=== PATIENT | female | born 1955 | race Caucasian/White ===

== ENCOUNTER → 2018-02-20 11:19 | Outpatient (CLI) | payer MEDICARE, SELFPAY ==
[2018-02-20 12:52] LABS: BUN 7 mg/dL (7-18); Creatinine, Serum 0.78 mg/dL (0.55-1.02); Glucose 285 mg/dL (74-106)
[2018-02-20 12:53] LABS: AST(SGOT) 14 U/L (15-37); Alanine Aminotransfer ALT/SGPT 18 U/L (13-56); Alkaline Phosphatase 137 U/L (45-117); Anion Gap 8 (5-15); Calcium,Total 9.9 mg/dL (8.5-10.1); Chloride 99 mmol/L (98-107); Cholesterol 146 mg/dL (200); EST Glomerular Filtration Rate 80 mL/min (>60); Est Glom Filt Rate - Afr Amer 97 mL/min (>60); Globulin 3.9 g/dL (2.2-4.2); High Density Lipoprotein 45 mg/dL; Potassium 4.1 mmol/L (3.5-5.1); Protein, Total 7.9 g/dL (6.4-8.2); Sodium Level 134 mmol/L (136-145); Triglycerides 207 mg/dL; Very Low Density Lipoprotein 41 mg/dL (5-40)
== END ==
PROVIDERS: Family Provider Family Medicine; PCP Family Medicine; Visit Provider Family Medicine
DX: E11.9 Type 2 diabetes mellitus without complications (principal); N39.0 Urinary tract infection, site not specified
CPT/HCPCS: 36415; 80053; 80061; 87077; 87086; 87088; 87186

== ENCOUNTER → 2018-08-27 12:19 | Outpatient (CLI) | payer MEDICARE, SELFPAY ==
[2018-08-27 14:39] LABS: Hematocrit 37.9 % (37-47); Hemoglobin 12.3 g/dl (12.0-15.0); Mean Corp Hgb Conc 32.5 g/gl (32-36); Mean Corpuscular Hgb 32.1 pg (27.0-32.0); Mean Platelet Vol. 9.6 fl (6.2-12.0); Platelet Count 221 K/mm3 (150-450); RBC Distribution Width CV 14.7 % (11.6-14.6); RBC Distribution Width SD 52.7 fl (35.1-43.9); Red Blood Count 3.83 M/mm3 (4.2-5.4); White Blood Count 4.7 K/mm3 (4.4-11.0)
[2018-08-27 14:40] LABS: Scan Indicated on CBC? Y/N NO
[2018-08-27 15:02] LABS: Cholesterol 134 mg/dL (200); High Density Lipoprotein 42 mg/dL; Triglycerides 192 mg/dL; Very Low Density Lipoprotein 38 mg/dL (5-40)
[2018-08-27 15:06] LABS: Hemoglobin A1c 5.8 % (4.2-6.3)
[2018-08-27 15:14] LABS: Microalbumin,Random Urine < 5.0 mg/L (NO RANGE EST.)
== END ==
PROVIDERS: Family Provider Family Medicine; PCP Family Medicine; Visit Provider Family Medicine
DX: E11.9 Type 2 diabetes mellitus without complications (principal); R30.0 Dysuria
CPT/HCPCS: 36415; 80061; 82043; 82570; 83036; 85027; 87086; 87088

== ENCOUNTER → 2019-01-28 12:12 | Outpatient (CLI) | payer MEDICARE, SELFPAY ==
[2019-01-28 14:37] LABS: Absolute Lymphocyte Count 0.65 X10^3/ul (0.83-4.51); Basophil# 0.02 X10^3/uL; Basophil% 0.4 % (0-1); Eosinophil# 0.13 X10^3/uL; Eosinophils% 2.5 % (0-5); Hematocrit 37.9 % (37-47); Hemoglobin 12.1 g/dl (12.0-15.0); Lymphocyte # 0.65 X10^3/ul (4.0); Lymphocyte % 12.4 % (19-41); Mean Corp Hgb Conc 31.9 g/gl (32-36); Mean Corpuscular Hgb 31.7 pg (27.0-32.0); Mean Corpuscular Volume 99.2 fL (81-99); Mean Platelet Vol. 9.5 fl (6.2-12.0); Monocyte# 0.41 X10^3/uL; Monocyte% 7.8 % (0-10); Neutrophil # 4.04 X10^3/uL (2.7-7.7); Neutrophil % 76.7 % (47-70); Platelet Count 260 K/mm3 (150-450); RBC Distribution Width CV 15.4 % (11.6-14.6); RBC Distribution Width SD 55.7 fl (35.1-43.9); Red Blood Count 3.82 M/mm3 (4.2-5.4); White Blood Count 5.3 K/mm3 (4.4-11.0)
[2019-01-28 14:42] LABS: Anion Gap 8 (5-15); BUN 13 mg/dL (7-18); BUN/Creat Ratio 14.1 RATIO (10-20); Calcium,Total 9.4 mg/dL (8.5-10.1); Chloride 104 mmol/L (98-107); Cholesterol 164 mg/dL (200); Creatinine, Serum 0.92 mg/dL (0.55-1.02); EST Glomerular Filtration Rate 66 mL/min (>60); Est Glom Filt Rate - Afr Amer 79 mL/min (>60); Glucose 122 mg/dL (74-106); High Density Lipoprotein 47 mg/dL; Potassium 4.2 mmol/L (3.5-5.1); Sodium Level 140 mmol/L (136-145); Triglycerides 160 mg/dL; Very Low Density Lipoprotein 32 mg/dL (5-40)
[2019-01-28 14:48] LABS: POSITIVE COUNT NO; POSITIVE DIFFERENTIAL NO; POSITIVE MORPHOLOGY NO
[2019-01-28 15:08] LABS: Microalbumin,Random Urine < 5.0 mg/L (NO RANGE EST.)
== END ==
PROVIDERS: Family Provider Family Medicine; PCP Family Medicine; Referring Provider Family Medicine; Visit Provider Family Medicine
DX: Z00.00 Encounter for general adult medical examination without abnormal findings (principal); E11.9 Type 2 diabetes mellitus without complications; R30.0 Dysuria
CPT/HCPCS: 36415; 80048; 80061; 82043; 82570; 85025; 87077; 87086; 87088

== ENCOUNTER → 2019-08-07 10:19 | Outpatient (CLI) | payer MEDICARE, SELFPAY ==
[2019-08-07 12:42] LABS: Hematocrit 37.1 % (37-47); Hemoglobin 12.2 g/dL (12.0-15.0); Mean Corp Hgb Conc 32.9 g/dL (32-36); Mean Corpuscular Hgb 32.3 pg (27.0-32.0); Mean Corpuscular Volume 98.1 fL (81-99); Mean Platelet Vol. 9.5 fl (6.2-12.0); Platelet Count 250 K/mm3 (150-450); RBC Distribution Width CV 14.9 % (11.6-14.6); RBC Distribution Width SD 53.8 fl (35.1-43.9); Red Blood Count 3.78 M/mm3 (4.2-5.4)
[2019-08-07 13:04] LABS: Anion Gap 7 (5-15); BUN 10 mg/dL (7-18); BUN/Creat Ratio 12.1 RATIO (10-20); Calcium,Total 9.9 mg/dL (8.5-10.1); Chloride 103 mmol/L (98-107); Cholesterol 143 mg/dL (200); Creatinine, Serum 0.83 mg/dL (0.55-1.02); EST Glomerular Filtration Rate 74 mL/min (>60); Est Glom Filt Rate - Afr Amer 90 mL/min (>60); Glucose 111 mg/dL (74-106); High Density Lipoprotein 44 mg/dL; Potassium 4.3 mmol/L (3.5-5.1); Sodium Level 137 mmol/L (136-145); Thyroid Stim Hormone (TSH) 4.22 uIU/mL (0.358-3.74); Triglycerides 165 mg/dL; Very Low Density Lipoprotein 33 mg/dL (5-40)
[2019-08-07 14:17] LABS: Hemoglobin A1c 6.2 % (4.2-6.3)
[2019-08-11 16:43] LABS: KEPPRA (LEVETIRACETAM) 18.3 ug/mL (10.0-40.0)
== END ==
PROVIDERS: Family Provider Family Medicine; PCP Family Medicine; Referring Provider Family Medicine; Visit Provider Family Medicine
DX: E03.9 Hypothyroidism, unspecified (principal); E11.9 Type 2 diabetes mellitus without complications; N39.0 Urinary tract infection, site not specified; G37.9 Demyelinating disease of central nervous system, unspecified
CPT/HCPCS: 36415; 80048; 80061; 80177; 83036; 84443; 85027; 87077; 87086; 87088

== ENCOUNTER → 2020-03-23 14:14 | Outpatient (CLI) | payer MEDICARE, SELFPAY ==
[2020-03-23 15:28] LABS: Absolute Lymphocyte Count 0.52 X10^3/uL (0.83-4.51); Basophil# 0.02 X10^3/uL; Basophil% 0.5 % (0-1); Eosinophil# 0.08 X10^3/uL; Hematocrit 34.7 % (37-47); Hemoglobin 11.5 g/dL (12.0-15.0); Lymphocyte # 0.52 X10^3/ul (4.0); Mean Corp Hgb Conc 33.1 g/dL (32-36); Mean Corpuscular Hgb 31.9 pg (27.0-32.0); Mean Corpuscular Volume 96.4 fL (81-99); Mean Platelet Vol. 9.1 fl (6.2-12.0); Monocyte# 0.37 X10^3/uL; Monocyte% 9.3 % (0-10); NRBC Flagged by Analyzer 0 % (0-5); Neutrophil % 75.2 % (47-70); POSITIVE DIFFERENTIAL YES; Platelet Count 243 K/mm3 (150-450); RBC Distribution Width SD 53.4 fl (35.1-43.9)
[2020-03-23 15:46] LABS: Hemoglobin A1c 6.4 % (3.8-5.6)
[2020-03-23 15:56] LABS: Differential Indicated SCAN CRITERIA MET
[2020-03-23 15:59] LABS: Platelet Estimate ADEQUATE (ADEQ); Red Cell Morphology N CHROM NORMAL (NORM C&C)
[2020-03-23 16:00] LABS: ALB/GLOB Ratio 0.9 RATIO (0.9-2.4); AST(SGOT) 26 U/L (15-37); Alanine Aminotransfer ALT/SGPT 25 U/L (13-56); Albumin, Serum 3.7 g/dL (3.2-5.0); Alkaline Phosphatase 145 U/L (45-117); Anion Gap 6 (5-15); Anisocytosis RARE; BUN 7 mg/dL (7-18); BUN/Creat Ratio 8.5 RATIO (10-20); Chloride 97 mmol/L (98-107); Cholesterol 157 mg/dL (200); Creatinine, Serum 0.83 mg/dL (0.55-1.02); EST Glomerular Filtration Rate 74 mL/min (>60); Est Glom Filt Rate - Afr Amer 89 mL/min (>60); Globulin 3.9 g/dL (2.2-4.2); Glucose 114 mg/dL (74-106); High Density Lipoprotein 43 mg/dL; Macrocytosis RARE; Protein, Total 7.6 g/dL (6.4-8.2); Sodium Level 133 mmol/L (136-145); Thyroid Stim Hormone (TSH) 3.24 uIU/mL (0.358-3.74); Triglycerides 134 mg/dL; Very Low Density Lipoprotein 27 mg/dL (5-40)
[2020-03-23 16:31] LABS: Vitamin D,25 Hydroxy 71.8 ng/mL
[2020-03-24 10:04] LABS: Pathologist Review Reviewed
== END ==
PROVIDERS: PCP Family Medicine; Referring Provider Family Medicine; Visit Provider Family Medicine
DX: R73.01 Impaired fasting glucose (principal); E03.9 Hypothyroidism, unspecified; G37.9 Demyelinating disease of central nervous system, unspecified
CPT/HCPCS: 36415; 80053; 80061; 82306; 83036; 84443; 85025

== ENCOUNTER → 2021-02-22 11:19 | Outpatient (CLI) | payer MEDICARE, SELFPAY ==
[2021-02-22 15:49] LABS: Anion Gap 4 (5-15); BUN 8 mg/dL (7-18); BUN/Creat Ratio 10.1 RATIO (10-20); Chloride 97 mmol/L (98-107); Cholesterol 182 mg/dL (200); Creatinine, Serum 0.79 mg/dL (0.55-1.02); EST Glomerular Filtration Rate 78 mL/min (>60); Est Glom Filt Rate - Afr Amer 94 mL/min (>60); Free T3 2.5 pg/mL (2.18-3.98); Glucose 153 mg/dL (74-106); High Density Lipoprotein 37 mg/dL; Potassium 4.4 mmol/L (3.5-5.1); Sodium Level 132 mmol/L (136-145); T4 Free Direct 0.77 ng/dL (0.76-1.46); Thyroid Stim Hormone (TSH) 4.06 uIU/mL (0.358-3.74); Triglycerides 340 mg/dL; Very Low Density Lipoprotein 68 mg/dL (5-40)
== END ==
PROVIDERS: PCP Family Medicine; Referring Provider Family Medicine; Visit Provider Family Medicine
DX: R31.9 Hematuria, unspecified (principal); E11.9 Type 2 diabetes mellitus without complications; E03.9 Hypothyroidism, unspecified
CPT/HCPCS: 36415; 80048; 80061; 84439; 84443; 84481; 87086; 87088

== ENCOUNTER → 2021-02-22 11:41 | Outpatient (CLI) | payer MEDICARE, SELFPAY ==
--- NOTE | 2021-02-22 11:45 | BI_ITS ---
MAMMOGRAPHY - BILATERAL SCREENING REASON FOR EXAM: Female, 66 years old. Routine annual screening examination. PERTINENT HISTORY: Non-contributory. TECHNIQUE: Digital bilateral breast melonie (3D mammographic acquisition) in the CC and MLO projections. 2-D mediolateral oblique (MLO) and craniocaudad (CC) views of both breasts were obtained. CAD: Full Field Digital Mammography with Computer Added Detection was performed. COMPARISON: Comparison is made with prior study 02/20/2017 and 08/19/2015. FINDINGS: Breast Composition: The breasts are heterogeneously dense, which may obscure small masses. There are no dominant masses or suspicious calcifications. No other significant abnormalities are identified. There has been no significant change since the prior study. BI/SCRN MAMM (CAD)W/MELONIE BILAT IMPRESSION: Stable bilateral screening mammogram. Yearly follow-up mammogram recommended. (A) ASSESSMENT CATEGORY: BIRADS Category 1: Negative. A letter regarding these results will be sent to the patient by the facility within 30 days. Approximately 10% of breast cancers are not detected by mammography. A normal mammogram should not delay biopsy of a clinically suspicious abnormality. [id number] Electronically Signed: Kaiden Wang MD at 13:16 EDT , Service support ,
== END ==
PROVIDERS: PCP Family Medicine; Referring Provider Family Medicine; Visit Provider Family Medicine
DX: Z12.31 Encounter for screening mammogram for malignant neoplasm of breast (principal); R31.9 Hematuria, unspecified; E11.9 Type 2 diabetes mellitus without complications; E03.9 Hypothyroidism, unspecified
CPT/HCPCS: 36415; 77063; 77067; 80048; 80061; 84439; 84443; 84481; 87086

== ENCOUNTER → 2021-08-18 12:46 | Outpatient (CLI) | payer MEDICARE, SELFPAY ==
[2021-08-18 14:09] LABS: Mucous, Urine 0 SEEN /hpf (<or=2+); Red Blood Cells-Urine 0 SEEN /hpf (0-5); Squamous Epithelial Cells - UA 0 SEEN /hpf (5-10)
[2021-08-18 17:33] LABS: Absolute Lymphocyte Count 0.68 X10^3/uL (0.83-4.51); Absolute Neutrophil Count 3.4 X10^3/uL (2.0-7.7); Basophil# 0.03 X10^3/uL; Basophil% 0.7 % (0-1); Eosinophil# 0.07 X10^3/uL; Eosinophils% 1.5 % (0-5); Hematocrit 36.5 % (37-47); Hemoglobin 11.9 g/dL (12.0-15.0); Lymphocyte # 0.68 X10^3/ul (0.83-4.51); Lymphocyte % 14.8 % (19-41); Mean Corp Hgb Conc 32.6 g/dL (32-36); Mean Corpuscular Hgb 32.4 pg (27.0-32.0); Mean Corpuscular Volume 99.5 fL (81-99); Mean Platelet Vol. 10.8 fl (6.2-12.0); Monocyte# 0.37 X10^3/uL; NRBC Flagged by Analyzer 0 % (0-5); Neutrophil # 3.44 X10^3/uL (2.7-7.7); Neutrophil % 74.8 % (47-70); Platelet Count 172 K/mm3 (150-450); RBC Distribution Width CV 14.5 % (11.6-14.6); RBC Distribution Width SD 52.5 fl (35.1-43.9); Red Blood Count 3.67 M/mm3 (4.2-5.4); White Blood Count 4.6 K/mm3 (4.4-11.0)
[2021-08-18 17:49] LABS: Color, Urine Yellow (Yellow); Glucose, Dipstick Normal (Normal); Ketone-Dipstick Negative (Negative); Leukocyte Esterase-Dipstick 100 /ul (Negative); Nitrite-Dipstick Negative (Negative); Occult Blood-Urine 10 /ul (Negative); Protein-Dipstick Negative (Negative); Urine Bilirubin Dipstick Negative (Negative); Urine Clarity Clear (Clear); Urine Urobilinogen Normal (Normal)
[2021-08-18 17:50] LABS: Hemoglobin A1c 6.9 % (3.8-5.6)
[2021-08-18 17:58] LABS: ALB/GLOB Ratio 0.9 RATIO (0.9-2.4); AST(SGOT) 20 U/L (15-37); Alanine Aminotransfer ALT/SGPT 23 U/L (13-56); Albumin, Serum 3.8 g/dL (3.2-5.0); Alkaline Phosphatase 140 U/L (45-117); Anion Gap 7 (5-15); BUN 8 mg/dL (7-18); BUN/Creat Ratio 9.6 RATIO (10-20); Calcium,Total 10.2 mg/dL (8.5-10.1); Chloride 98 mmol/L (98-107); Cholesterol 146 mg/dL (200); Creatinine, Serum 0.83 mg/dL (0.55-1.02); EST Glomerular Filtration Rate 73 mL/min (>60); Est Glom Filt Rate - Afr Amer 88 mL/min (>60); Globulin 4.4 g/dL (2.2-4.2); Glucose 119 mg/dL (74-106); High Density Lipoprotein 37 mg/dL; Potassium 3.7 mmol/L (3.5-5.1); Protein, Total 8.2 g/dL (6.4-8.2); Sodium Level 136 mmol/L (136-145); Triglycerides 199 mg/dL; Very Low Density Lipoprotein 40 mg/dL (5-40)
[2021-08-18 18:10] LABS: Microalbumin,Random Urine 6.5 mg/L (NO RANGE EST.)
[2021-08-18 18:20] LABS: Bacteria 1+ /hpf (None Seen); White Blood Cells 0-5 SEEN /hpf (0-5)
== END ==
PROVIDERS: PCP Family Medicine; Referring Provider Family Medicine; Visit Provider Family Medicine
DX: R30.0 Dysuria (principal); G36.0 Neuromyelitis optica [Devic]; E11.9 Type 2 diabetes mellitus without complications; E55.9 Vitamin D deficiency, unspecified; Z51.81 Encounter for therapeutic drug level monitoring
CPT/HCPCS: 36415; 80053; 80061; 81001; 82043; 82306; 83036; 85025; 87086; 87088

== ENCOUNTER → 2022-02-23 | Outpatient (CLI) | payer MEDICARE, SELFPAY ==
[2022-02-23 12:27] LABS: Hemoglobin A1c 7.1 % (3.8-5.6)
[2022-02-23 12:28] LABS: Microalbumin,Random Urine 5.7 mg/L (NO RANGE EST.); Microalbumin:Creatinine Ratio 37.7 mg/g CRE (<30 mg/g CRE)
[2022-02-23 12:35] LABS: AST(SGOT) 29 U/L (15-37); Alanine Aminotransfer ALT/SGPT 29 U/L (13-56); Albumin, Serum 3.9 g/dL (3.2-5.0); Alkaline Phosphatase 134 U/L (45-117); Anion Gap 4 (5-15); BUN 9 mg/dL (7-18); BUN/Creat Ratio 9.8 RATIO (10-20); Calcium,Total 9.7 mg/dL (8.5-10.1); Chloride 104 mmol/L (98-107); Cholesterol 169 mg/dL (200); Creatinine, Serum 0.92 mg/dL (0.55-1.02); EST Glomerular Filtration Rate 65 mL/min (>60); Est Glom Filt Rate - Afr Amer 79 mL/min (>60); Globulin 4.1 g/dL (2.2-4.2); Glucose 151 mg/dL (74-106); High Density Lipoprotein 40 mg/dL; Sodium Level 137 mmol/L (136-145); Thyroid Stim Hormone (TSH) 3.67 uIU/mL (0.358-3.74); Triglycerides 196 mg/dL; Very Low Density Lipoprotein 39 mg/dL (5-40)
== END | disposition home or self-care (01) ==
LOC: MFPLAB 10:46
PROVIDERS: PCP Family Medicine; Referring Provider Family Medicine; Visit Provider Family Medicine
DX: E11.9 Type 2 diabetes mellitus without complications (principal); E03.9 Hypothyroidism, unspecified; E66.9 Obesity, unspecified
CPT/HCPCS: 36415; 80053; 80061; 82043; 82570; 83036; 84443

== ENCOUNTER → 2022-02-23 | Outpatient (CLI) | payer MEDICARE, SELFPAY ==
--- NOTE | 2022-02-23 12:04 | BI_ITS ---
MAMMOGRAPHY - BILATERAL SCREENING REASON FOR EXAM: Female, 67 years old. Routine annual screening examination. PERTINENT HISTORY: Non-contributory. TECHNIQUE: Digital bilateral breast melonie (3D mammographic acquisition) in the CC and MLO projections. 2-D mediolateral oblique (MLO) and craniocaudad (CC) views of both breasts were obtained. CAD: Full Field Digital Mammography with Computer Added Detection was performed. COMPARISON: Comparison is made with prior study dated 02/22/2021 and 02/20/2017. FINDINGS: Breast Composition: The breasts are heterogeneously dense, which may obscure small masses. There are no dominant masses or suspicious calcifications. No other significant abnormalities are identified. There has been no significant change since the prior study. BI/SCRN MAMM (CAD)W/MELONIE BILAT IMPRESSION: Stable bilateral screening mammogram. Yearly follow-up mammogram recommended. (A) ASSESSMENT CATEGORY: BIRADS Category 1: Negative. A letter regarding these results will be sent to the patient by the facility within 30 days. Approximately 10% of breast cancers are not detected by mammography. A normal mammogram should not delay biopsy of a clinically suspicious abnormality. [id number] Electronically Signed: Kaiden Wang MD at 13:19 EDT ,
== END | disposition home or self-care (01) ==
LOC: OPBI 12:03
PROVIDERS: PCP Family Medicine; Visit Provider Family Medicine
DX: Z12.31 Encounter for screening mammogram for malignant neoplasm of breast (principal); E11.9 Type 2 diabetes mellitus without complications; E03.9 Hypothyroidism, unspecified; E66.9 Obesity, unspecified
CPT/HCPCS: 36415; 77063; 77067; 80053; 80061; 82043; 82570; 83036; 84443